=== PATIENT | male | born 1965 | race Caucasian/White ===

== ENCOUNTER → 2020-03-14 | Outpatient (CLI) | payer BC | LOC: KOH-I 13:41 | DX: M25.562 Pain in left knee (principal); M79.605 Pain in left leg | CPT/HCPCS: 76881; 93971 ==

== ENCOUNTER 2021-08-31 15:04 | Emergency (ER) | payer BC | END 2021-08-31 17:51 | disposition left against medical advice (07) | LOC: ER1 15:04 | DX: Z53.21 Procedure and treatment not carried out due to patient leaving prior to being seen by health care provider (principal) ==